=== PATIENT | male | born 1975 | race American Indian/Alaskan Native ===

== ENCOUNTER 2021-10-08 07:24 | Emergency (ER) | payer SELFPAY ==
[2021-10-08 08:15] LABS: Basophils # (Auto) 0.1 K/mm3 (0.0-0.1); Eosinophils # (Auto) 0.3 K/mm3 (0.0-0.4); Eosinophils % (Auto) 2.7 % (0.0-4.3); Hematocrit 45.3 % (35.5-45.6); Hemoglobin 15.5 gm/dl (11.8-15.2); Lymphocytes # (Auto) 1.7 K/mm3 (1.2-5.4); Lymphocytes % (Auto) 17.6 % (13.4-35.0); Mean Corpuscular HGB Conc 34 % (32-34); Mean Corpuscular Volume 103 fl (84-94); Monocytes # (Auto) 0.4 K/mm3 (0.0-0.8); Monocytes % (Auto) 4.2 % (0.0-7.3); Platelet Count 318 K/mm3 (140-440); Red Cell Distribution Width 13.8 % (13.2-15.2)
[2021-10-08 08:31] LABS: Blood Urea Nitrogen 7 mg/dL (9-20); Calcium 9.3 mg/dL (8.4-10.2); Hemolysis Index 4
[2021-10-08 08:42] LABS: BUN/Creatinine Ratio 10
--- NOTE | 2021-10-08 08:50 | Cat Scan Report ---
CT HEAD WITHOUT CONTRAST INDICATION / CLINICAL INFORMATION: neuro deficits <6hrs or sx present upon awakening. TECHNIQUE: All CT scans at this location are performed using CT dose reduction for ALARA by means of automated exposure control. COMPARISON: None available. FINDINGS: BRAIN PARENCHYMA: No acute intracranial hemorrhage. No evidence of recent infarct. No mass effect or midline shift. VENTRICULAR SYSTEM/EXTRA-AXIAL SPACES: Ventricles are normal for age. No extra-axial fluid collection . ORBITS: Normal as visualized. SKELETAL SYSTEM/SOFT TISSUES: Normal bones and soft tissues. PARANASAL SINUSES/MASTOID AIR CELLS: No significant abnormality. ADDITIONAL FINDINGS: None. IMPRESSION: 1. No acute intracranial abnormality. Signer Name: Sp Tristan MD Signed: 10/08/2021 8:45 AM Workstation Name: [id number]
[2021-10-08 08:52] LABS: INR 1.11 (0.87-1.13)
[2021-10-08 09:45] LABS: Partial Thromboplastin Time 30.2 Sec. (24.2-36.6)
--- NOTE | 2021-10-08 09:50 | Electrocardiograph Report ---
[facility] Test Date: 2021-10-08 Test Time: 07:54:41 Pat Name: MILTON GALLO Department: Room: Gender: M Psychiatric Specialist: Nicanor BECK RN : 1975 Requested By: ED DOC Order Number: [id number] Reading MD: Fernando More Measurements Intervals [place] Rate: 89 P: 34 KS: 147 QRS: -9 QRSD: 98 T: 49 QT: 362 QTc: 442 Interpretive Statements Sinus rhythm Incomplete right bundle branch block No previous ECG available for comparison Electronically Signed On 10-08-2021 9:50:05 EDT by Fernando More
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
--- NOTE | 2021-10-08 16:31 | XRay Report ---
XR shoulder 2+V LT INDICATION / CLINICAL INFORMATION: pain. COMPARISON: None available. FINDINGS: No acute fracture. Normal alignment. Mild acromioclavicular joint degenerative change. Joint spaces are preserved. No destructive osseous lesion or suspicious periosteal reaction. Impression: 1.No significant osseous abnormality. Signer Name: Chetan Delaney MD Signed: 10/08/2021 4:27 PM Workstation Name: [id number]
[2021-10-08 17:22] VITALS: BP 137/92
== END 2021-10-08 17:25 | disposition home or self-care (01) ==
LOC: ED 07:24
DX: F10.129 Alcohol abuse with intoxication, unspecified (principal); M25.512 Pain in left shoulder; I10 Essential (primary) hypertension; F17.200 Nicotine dependence, unspecified, uncomplicated
CPT/HCPCS: 36415; 70450; 80048; 80320; 84484; 85025; 85610; 85670; 85730; 93005; 99284; G0480